=== PATIENT | male | born 1995 | race Caucasian/White ===

== ENCOUNTER 2021-04-09 15:38 | Emergency (ER) | payer OTHER ==
--- NOTE | 2021-04-09 16:02 | ED Physician Documentation ---
PD HPI FOCAL NEURO - Stated complaint Stated Complaint: DIZZY,NECK PRESSURE - Chief complaint Chief Complaint: Heent - History obtained from History obtained from: Patient - Additional information Additional information: 25-year-old gentleman with history of ADD on Adderall, otherwise healthy with no significant past family history or medical history presents with neck pain and vertigo. The neck pain started at work a few hours ago. Started on the right. Then he developed vertigo which she describes as a feeling of off balance more up-and-down than horizontal. He is never had this before. He was nauseous with it but does not has not vomited. Feeling mostly better now but not completely resolved. Review of Systems Ten Systems: 10 systems reviewed and negative Constitutional: reports: Reviewed and negative Eyes: reports: Reviewed and negative Ears: reports: Reviewed and negative Nose: reports: Reviewed and negative PD PAST MEDICAL HISTORY - Allergies Allergies/Adverse Reactions: Allergies Allergy/AdvReac Type Severity Reaction Status Date / Time No Known Drug Allergies Allergy Verified 04/09/21 15:47 PD ED PE NORMAL - Vitals Vital signs reviewed: Yes - General General: Alert and oriented X 3, No acute distress - HEENT HEENT: PERRL, EOMI - Neck Neck: Supple, no meningeal sign, No bony TTP - Cardiac Cardiac: RRR, No murmur - Respiratory Respiratory: No respiratory distress, Clear bilaterally - Abdomen Abdomen: Non tender - Extremities Extremities: No deformity, No tenderness to palpate, Normal ROM s pain, No edema, No calf tenderness / cord - Neuro Neuro: Alert and oriented X 3, 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 Exam is normal, most worrisome etiology would be vertebral dissection, although my pretest probability is low but not 0. CT angiography of the head and neck was negative. He declined medication trial. Departure - Departure Disposition: 01 Home, Self Care Clinical Impression: Neck pain, Vertigo Condition: Good Record reviewed to determine appropriate education?: Yes Instructions: ED Neck Back Pain General, ED Vertigo Unspecified Comments: You were seen today for neck pain and vertigo. Thankfully your examination is normal, and CT angiography of the head and neck demonstrate no abnormalities including no vertebral dissection which was what I was a little bit worried about. Return if you worsen. Follow-up with your doctor next week.
[2021-04-09] MEDS ORDERED: IOPAMIDOL-300 100 ML VIAL ONE (16:18)
--- NOTE | 2021-04-09 17:22 | CT Report ---
PROCEDURE: ANGIO NECK W INDICATIONS: R posterior neck pain/vertigo CONTRAST: IV CONTRAST: Isovue 300 ml: 80 PO CONTRAST: *NO PO CONTRAST TECHNIQUE: After the administration of intravenous contrast, 1.5 mm axial sections acquired from the aortic arch to the [place] of [place]. Coronal 3-D maximum intensity projection (MIP) and/or volume rendering ref ormats were then performed. For radiation dose reduction, the following was used: automated exposur e control, adjustment of mA and/or kV according to patient size. COMPARISON: Correlation is made with the accompanying head CT angiogram, 04/09/2021 FINDINGS: Image quality: Excellent. Carotid system: Incidental note is made of a common trunk off of the aorta of the right brachiocepha lic artery and the left common carotid artery (bovine type aortic arch). This is considered to be a d evelopmental variant of typically no clinical consequence. The origins of the common carotid arteri es appear patent. The common carotid arteries demonstrate normal calibers and courses. The bifurcat ion regions appear normal bilaterally. The internal carotid arteries demonstrate normal caliber and course. Posterior circulation: The origins of the vertebral arteries appear patent. The more superior porti ons of the vertebral arteries demonstrate normal course and caliber. They join to form a normal appe aring basilar artery. Soft tissues: Visualized neck soft tissues demonstrate no suspicious abnormalities. The thyroid is normal in size and there are no incidental findings. Bones: No suspicious bony lesions. Visualized cervical spine appears normally aligned. IMPRESSION: Normal neck arteries. Negative for dissection. No significant stenosis can be seen. Incidental note is made of: Bovine type aortic branching pattern. The estimate of stenosis included in the report of the imaging study was calculated using the NASCET method Reviewed by: Solomon Fernandez MD on 04/09/2021 4:21 PM DEVIN Approved by: Solomon Fernandez MD on 04/09/2021 4:21 PM AKDT Station ID: [id number]
--- NOTE | 2021-04-09 17:24 | CT Report ---
PROCEDURE: ANGIO HEAD W/WO INDICATIONS: R posterior neck pain/vertigo CONTRAST: IV CONTRAST: Isovue 300 ml: 80 PO CONTRAST: *NO PO CONTRAST TECHNIQUE: Precontrast 4.5 mm thick angled axial sections acquired from the foramen magnum to the vertex. Afte r the administration of intravenous contrast, 1 mm thick sections acquired through the [place] of [place] is. Postcontrast 4.5 mm thick sections then re-acquired from the foramen magnum to the vertex. 3-di mensional bvxvotx-qwcihhjob-qibabryrkl (MIP) and/or volume rendering reformats were acquired of the c entral intracranial vasculature. For radiation dose reduction, the following was used: automated ex posure control, adjustment of mA and/or kV according to patient size. COMPARISON: Correlation is made with the accompanying neck CT angiogram, 04/09/2021. FINDINGS: Image quality: There is streak artifact seen through the skull base. Anterior circulation: Intracranial internal carotid arteries are normal in size and flow. The flow within the paired anterior cerebral arteries is normal and symmetric. The flow within the middle cer ebral arteries is normal and symmetric. The anterior communicating artery is seen. No aneurysms are seen. Posterior circulation: Visualized portions of the vertebral arteries demonstrate normal caliber, and join to form a normal appearing basilar artery. Flow within the posterior cerebral arteries is norm al and symmetric. No aneurysms are seen. CSF spaces: Ventricles are normal in size and shape. Basal cisterns are patent. No extra-axial flu id collections. Brain: No midline shift. No intracranial bleeds or masses. Watts-white matter interface appears int act. Skull and face: Calvarium and facial bones appear intact, without suspicious lesions. Sinuses: Visualized sinuses and mastoids are clear. IMPRESSION: No intracranial hemorrhage is seen. No significant intracranial abnormality is seen. No significant intracranial arterial abnormalities are seen. No findings of dissection are seen. Reviewed by: Solomon Fernandez MD on 04/09/2021 4:23 PM DEVIN Approved by: Solomon Fernandez MD on 04/09/2021 4:23 PM DEVIN Station ID: [id number]
[2021-04-09] MEDS ORDERED: IOPAMIDOL-300 50 ML VIAL IVP ONE (17:29)
[2021-04-09] MEDS ORDERED: IOPAMIDOL-300 100 ML VIAL IVP ONE (17:35)
[2021-04-09 17:44] VITALS: BP 140/76
== END 2021-04-09 17:43 | disposition home or self-care (01) ==
LOC: ED 15:38
DX: M54.2 Cervicalgia (principal); R42 Dizziness and giddiness
CPT/HCPCS: 70496; 70498; 99282; 99284; Q9967

== ENCOUNTER 2021-08-30 08:00 | Outpatient (CLI) | payer OTHER | END 2021-08-30 23:59 | LOC: LAB 08:00 | PROVIDERS: ATTEND Family Medicine | DX: R07.0 Pain in throat (principal) | CPT/HCPCS: 87070 ==

== ENCOUNTER 2021-08-30 08:00 | Outpatient (CLI) | payer OTHER | END 2021-08-30 23:59 | LOC: LAB 08:00 | PROVIDERS: ATTEND Nurse Practitioner | DX: U07.1 COVID-19 (principal) | CPT/HCPCS: 87070 ==